=== PATIENT | male | born 1990 | race Caucasian/White ===

== ENCOUNTER 2017-06-24 06:09 | Emergency (ER) | payer MEDICAID, OTHER ==
[~2017-06-24] VITALS: Ht 165.1 cm; Wt 60.8 kg
[2017-06-24 06:27] VITALS: Ht 165.1 cm; Wt 60.8 kg
[2017-06-24] MEDS ORDERED: CLOT30CR24 TOP (07:08)
--- NOTE | 2017-06-24 07:13 | ERD ---
ER Documentation Chief Complaint Chief Complaint rash on groin HPI This is a 26-year-old male who presents emergency department today complaining of a rash on his penis for the past days. States he used some medication that he got from the pharmacy that he thinks was lidocaine. States that the rash is itchy. Denies any fevers or chills. States he is sexually active with one partner but does not use protection. Denies any pain with urination and no penile discharge. Denies any new sexual partners. ROS All systems reviewed and are negative except as per history of present illness. Medications Home Meds Active Scripts Clotrimazole* (Clotrimazole* AF) 1% - 30 Gm Cream.gm., 1 APPLIC TOP BID for 7 Days, #1 TUB Prov:ELENA WORTHY PA-C 06/24/17 Allergies Allergies: Coded Allergies: Penicillins (Verified Allergy, 07/07/13) PMhx/Soc Hx Alcohol Use: No Hx Substance Use: No Hx Tobacco Use: No Physical Exam Vitals Vital Signs Date Time Temp Pulse Resp B/P Pulse Ox O2 Delivery O2 Flow Rate FiO2 06/24/17 06:27 97.4 58 18 111/63 98 Physical Exam Const: NAD Head: Atraumatic Eyes: Normal Conjunctiva ENT: Normal External Ears, Nose and Mouth. Neck: Full range of motion..~ No meningismus. Resp: Clear to auscultation bilaterally Cardio: Regular rate and rhythm, no murmurs Abd: Soft, non tender, non distended. Normal bowel sounds : Uncircumcised penis with no penile discharge. Evidence of fungal-like rash on head of penis. No lesions or vesicles Skin: No petechiae or rashes Back: No midline or flank tenderness Ext: No cyanosis, or edema Neur: Awake and alert Psych: Normal Mood and Affect Procedures/MDM This is a 26-year-old male who presents the emergency department today for a rash on his penis for the past 5 days. On physical exam patient appears to have evidence of fungal-like rash. Patient did indicate that the rash was itching. There are no vesicles or lesions have low suspicion for herpes , syphyllis at this time. Patient is afebrile and otherwise well-appearing. There is no discharge from his penis and I is no evidence of gonorrhea or chlamydia at this time. Patient was given a prescription for clotrimazole cream he was instructed to follow-up with his primary care doctor and keep the area clean and dry. At this time the patient is stable for discharge and outpatient management. Patient should follow up with their PCP in the next 1-2 days. They may return to the emergency department sooner for any persistent or worsening of symptoms. Patient understood and agreed with the plan. Departure Diagnosis: Primary Impression: Rash and other nonspecific skin eruption Condition: Fair Patient Instructions: Fungal Infection, Skin [General] Referrals: your PCP Additional Instructions: Llame al doctor ROSALINE y yaa tila ARIES PARA DENTRO DE 1-2 CORTEZ.Dgale a la secretaria que nosotros le instruimos hacer esta aries.Avise o llame si rashid condicin se empeora antes de la aries. Regresa aqui si peor o no mejor. Use medication as prescribed. Keep area clean and dry ELENA WORTHY PA-C Jun 24, 2017 07:13
== END 2017-06-24 07:25 | disposition home or self-care (01) ==
LOC: FTE 06:09
DX: R21 Rash and other nonspecific skin eruption (principal)
CPT/HCPCS: 99283